=== PATIENT | male | born 1985 | race Caucasian/White ===

== ENCOUNTER 2024-08-08 22:30 | Emergency (ER) | payer SELFPAY ==
[~2024-08-08] VITALS: Ht 160 cm; Wt 82.1 kg
[2024-08-08 22:40] VITALS: O2SAT 97
[2024-08-08 22:41] VITALS: BP 127/82; PULSE 60; RESP 16; TEMP 36.7; O2SAT 98
[2024-08-08] MEDS ORDERED: METHOCARBAMOL 750MG TABLET PO SCH (23:30)
[2024-08-09] MEDS: METHOCARBAMOL 500MG TABLET PO SCH (00:04)
[2024-08-09] MEDS: KETOROLAC 30MG/ML VIAL IM ONE (00:04)
[2024-08-09] MEDS ORDERED: IBUP-2028 MT (00:34)
[2024-08-09] MEDS ORDERED: TOPUD PO (00:34)
[2024-08-09] MEDS ORDERED: LIDO-53 TP (01:10)
[2024-08-09] MEDS ORDERED: METH-653 MT (01:10)
== END 2024-08-09 01:44 | disposition home or self-care (01) ==
LOC: ER 22:30
DX: S39.012A Strain of muscle, fascia and tendon of lower back, initial encounter (principal); Z88.0 Allergy status to penicillin; V43.52XA Car driver injured in collision with other type car in traffic accident, initial encounter; Y93.89 Activity, other specified; Y92.410 Unspecified street and highway as the place of occurrence of the external cause; Y99.8 Other external cause status
CPT/HCPCS: 99284; 71045; 72070; 72100; 96372; J1885